=== PATIENT | female | born 1945 | race Caucasian/White ===

== ENCOUNTER 2020-03-05 19:40 | Emergency (ER) | payer SELFPAY ==
--- NOTE | 2020-03-05 20:10 | NUR ---
NAME CALLED AND NO ANSWER. PER ADMITTING PT LWBS.
--- NOTE | 2020-03-05 20:15 | NUR ---
PT CALLED, AND NO RESPONSE RECIVED.
--- NOTE | 2020-03-05 20:25 | NUR ---
PT CALLED AND NO ANSWER. PT LWBS.
== END 2020-03-05 20:00 | disposition left against medical advice (07) ==
LOC: MED 19:40
DX: R51 Headache (principal); Z53.21 Procedure and treatment not carried out due to patient leaving prior to being seen by health care provider